=== PATIENT | female | born 1950 | race Caucasian/White ===

== ENCOUNTER → 2018-02-15 13:27 | Outpatient (CLI) | payer MEDICARE, OTHER, SELFPAY ==
--- NOTE | 2018-02-15 15:30 | PM.TREADMILL ---
Cardiac Stress Test Report Referral & Results Date Patient Seen: 02/15/18 Requesting provider: Kyra Peoples Indication: Palpitations Rest ECG: Unremarkable Procedure Note: Today following both written and verbal informed consent, the patient was exercised according to a standard [employer] protocol. The patient exercised for a total of 11 min to seconds achieving a maximum heart rate of 166. Patient's maximum systolic blood pressure was 170 to. This was an estimated 12.[address] segment changes noted No dysrhythmia Normal heart rate blood pressure response Functional aerobic impairment way way off the scale estimate functional aerobic capacity to be equal that of an active 25-year-old Impression: No evidence of ischemia No dysrhythmia Amazing exercise capacity Please note: Actual ECG tracings can be found in the PACS system.
== END ==
PROVIDERS: PCP Family Medicine; Visit Provider Family Medicine
DX: R00.2 Palpitations (principal)
CPT/HCPCS: 93016; 93017; 93018

== ENCOUNTER → 2018-08-08 12:55 | Outpatient (CLI) | payer MEDICARE, OTHER, SELFPAY ==
--- NOTE | 2018-08-08 | DI.MG.S_ITS ---
BILATERAL DIGITAL SCREENING MAMMOGRAM 3D/2D WITH CAD: 08/08/2018 CLINICAL: Routine screening. Comparison is made to exams dated: 08/26/2014 mammogram, 08/28/2012 mammogram - [facility], and 04/22/2010 mammogram - [facility]. The tissue of both breasts is heterogeneously dense. This may lower the sensitivity of mammography. Current study was also evaluated with a Computer Aided Detection (CAD) system. No significant masses, calcifications, or other findings are seen in either breast. There has been no significant interval change. IMPRESSION: NEGATIVE There is no mammographic evidence of malignancy. A 1 year screening mammogram is recommended. This exam was interpreted at Station ID: [id number]. NOTE: For mammograms, a report in lay terms will be sent to the patient. Approximately 15% of breast malignancies will not be visualized mammographically. In the management of a palpable breast mass, a negative mammogram must not discourage biopsy of a clinically suspicious lesion. Electronically Signed By: Jorge [email or web address]:08/08/2018 18:36:22 letter sent: Normal Exam ACR BI-RADS Category 1: Negative [id number]
== END ==
PROVIDERS: PCP Family Medicine; Visit Provider Family Medicine
DX: Z12.31 Encounter for screening mammogram for malignant neoplasm of breast (principal)
CPT/HCPCS: 77063; 77067